=== PATIENT | male | born 1950 | race African-American/Black ===

== ENCOUNTER → 2020-04-06 | Outpatient (CLI) | payer OTHER ==
[~2020-04-06] MED LIST: ASA81BEC PO; CLOPIDOGREL75 MG PO; HYDROCHLOROTH12.5 M2 PO; LEVOTHYROXINE200 MC1 PO; LIPITOR 40 MG T40 M1 PO; LOSARTAN POTAS100 MG PO; METFORMIN HCL1000 MG PO; MULTIVITAMINS1 EAC7 PO; NORVASC5 MG PO; TRULICITY0.75 MG/0. SUBQ
== END ==
LOC: LAB 11:17
PROVIDERS: ATTEND Podiatrist
DX: Z01.812 Encounter for preprocedural laboratory examination (principal); Z20.828 Contact with and (suspected) exposure to other viral communicable diseases

== ENCOUNTER 2020-04-11 06:15 | Day surgery (SDC) | payer OTHER ==
--- NOTE | 2020-03-30 13:03 | EKG ---
[facility] [place] [address] ELECTROCARDIOGRAM REPORT Name: CHRISTIANO NEELY Room #: PRE [facility] M.R.#: [id number] Admission: Attend Phys: Quinten Pond DPM Discharge: Date of : 52 Report #: [id number] THIS REPORT FOR: cc: FAM - Family physician unknown FAM - Family physician unknown Maikel Mai MD [facility] ~ THIS REPORT FOR: //name// [facility] ED Test Date: 2020-03-30 Test Time: 01:39:46 Pat Name: CHRISTIANO NEELY Department: Room: Gender: M Communications Writer: : 1950 Requested By: Quinten Pond Order Number: [id number] MD: Maikel Mai Measurements Intervals [place] Rate: 71 P: -38 RI: 218 QRS: -14 QRSD: 98 T: 78 QT: 421 QTc: 458 Interpretive Statements Sinus rhythm Abnormal R-wave progression, early transition Left ventricular hypertrophy No previous ECG available for comparison Electronically Signed On 03-30-2020 13:03:06 CDT by Maikel Mai [email or web address] <ELECTRONICALLY SIGNED> By: Maikel Mai MD, FACC 03/30/20 1303 0139 013 Maikel Mai MD, FACC /EPI
[~2020-04-11] VITALS: Ht 182.9 cm; Wt 94.8 kg
--- NOTE | ~2020-04-11 | O ---
[facility] [place] [address] OPERATIVE REPORT Name: CHRISTIANO NEELY Room #: 150-2 [facility]..#: [id number] Admission: 04/11/20 Attend Phys: Quinten Pond DPM Discharge: Date of : 52 Report #: [id number] THIS REPORT FOR: cc: Sergey Carney MD,Quinten Nowak MD, DPM ~ CC: Quinten Carney DATE OF SERVICE: 04/11/2020 SURGEON: Quinten Pond DPM. PREOPERATIVE DIAGNOSIS: Metatarsalgia, left foot fifth metatarsal. POSTOPERATIVE DIAGNOSIS: Metatarsalgia, left foot fifth metatarsal. PROCEDURE: Fifth metatarsal head resection, left foot. ANESTHESIA: IV sedation with local nerve block. HEMOSTASIS: Applied the well-padded ankle tourniquet to the left ankle. ESTIMATED BLOOD LOSS: Minimal. COMPLICATIONS: There were no complications during the procedure or the anesthesia. PREOPERATIVE COURSE: This patient was seen in the office complaining of a very chronic painful left foot due to a lesion on the plantar aspect of the fifth metatarsal. The patient is becoming more and more disabled and unable to ambulate without pain. In regard to this lesion, it lies directly underneath the fifth metatarsal head. He has had this debrided routinely for quite some time and is ready to have something permanently done. As this lesion does lie directly underneath the fifth metatarsal head, the option was presented to him to have a fifth metatarsal head resection and resolve the lesion and improve his quality of life greatly due to resolving the pain on the left foot. The patient agreed to the nature of the procedure and the risks and complications and signed a preoperative consent form admitting to his understanding. DESCRIPTION OF PROCEDURE: The patient was wheeled to the operating room in the usual supine condition, transferred to the operating table, given IV sedation. Once the IV sedation was found to be adequate, local nerve block was given to the left foot. The left foot was then prepped and draped in the usual sterile manner. Upon re-entering the operating room, anesthesia was checked and found to be adequate. Esmarch tourniquet was used to exsanguinate the blood from the [facility] [address] [address] OPERATIVE REPORT Name: FLORINDACHRISTIANO Gonzalez Room #: 150-2 [facility]..#: [id number] Admission: 04/11/20 Attend Phys: Quinten Pond DPM Discharge: Date of : 52 Report #: [id number] left foot and the ankle tourniquet elevated to 250 mmHg. A linear longitudinal incision was made over the dorsal aspect of the fifth metatarsal head and distal shaft. This was deepened sharply and bluntly, taking care to cauterize and retract all bleeders. The fifth toe is dorsally contracted on top of the joint and this was reflected out of the way, exposing the neck of the fifth metatarsal. The fifth metatarsal was then resected using a sagittal saw and the soft tissue stripped from the metatarsal head and it was removed from the site in total. A rongeur was used to remove the sharp edges from the remaining more proximal shaft of the fifth metatarsal. Tourniquet was released and hemostasis maintained using the cautery unit to the soft tissues. A 4-0 Vicryl was used in a subcuticular closure re-opposing the tissue within the gap created by the fifth metatarsal head resection. Next, a 4-0 nylon suture was used in a running fashion to re-oppose the skin edges. Cap refill immediately returned to all digits on the left foot upon release of the tourniquet and sterile dressing was applied to the left foot. The patient was given Lortab 7.5 mg/325 for pain management and will ambulate in a postoperative shoe and be seen in 3 days for postoperative wound management. The patient was also given Keflex 500 mg b.i.d. for 10 days. The patient left the operating room in stable condition. We will follow up in 3 days as mentioned for postoperative wound management. By: 0930 [id number] Quinten Pond DPM /[email or web address]
[2020-04-11 07:06] LABS: CALCIUM 9.4 mg/dL (8.5-10.1); CREATININE 0.9 mg/dL (0.7-1.3); POTASSIUM 3.4 mmol/L (3.5-5.1)
[2020-04-11 07:32] VITALS: BP 165/78
== END 2020-04-11 09:35 | disposition home or self-care (01) ==
LOC: OR 06:15 → TBA 06:15 → OR 08:02
PROVIDERS: ATTEND Podiatrist
DX: M77.42 Metatarsalgia, left foot (principal); I10 Essential (primary) hypertension; E11.9 Type 2 diabetes mellitus without complications; E78.5 Hyperlipidemia, unspecified; E03.9 Hypothyroidism, unspecified; F17.210 Nicotine dependence, cigarettes, uncomplicated; Z98.890 Other specified postprocedural states; Z79.899 Other long term (current) drug therapy; Z79.82 Long term (current) use of aspirin; Z88.0 Allergy status to penicillin
CPT/HCPCS: 50010; 50101; 50386; 50951; 56526; 57091; 57178; 62110; 62850; 70005